=== PATIENT | male | born 1995 | race Caucasian/White ===

== ENCOUNTER 2020-01-04 16:12 | Emergency (ER) | payer BC, MEDICAID ==
[~2020-01-04] VITALS: Ht 190.5 cm; Wt 115.0 kg
[~2020-01-04 16:12] MED LIST: HYDR-4383 PO
[2020-01-04 16:15] VITALS: BP 133/79
[2020-01-04] MEDS ORDERED: IBUP-1985 PO (17:38)
== END 2020-01-04 17:48 | disposition home or self-care (01) ==
LOC: ER 16:12
DX: M65.4 Radial styloid tenosynovitis [de Quervain] (principal); M25.532 Pain in left wrist; Z79.899 Other long term (current) drug therapy
CPT/HCPCS: 29125; 73110; 99283

== ENCOUNTER 2020-03-28 03:25 | Emergency (ER) | payer BC ==
[~2020-03-28 03:25] MED LIST changes: +IBUP-1985 PO
== END 2020-03-28 03:48 | disposition left against medical advice (07) ==
LOC: ER 03:26
DX: K14.8 Other diseases of tongue (principal); Z53.21 Procedure and treatment not carried out due to patient leaving prior to being seen by health care provider